=== PATIENT | male | born 1995 | race Caucasian/White ===

== ENCOUNTER 2020-07-30 13:41 | Emergency (ER) | payer OTHER ==
[~2020-07-30 13:41] MED LIST: IBUPROFEN800 MG PO; MEDROL 4MG DOSEP4 MG PO; PROTONIX 40MG T40 MG PO; VOLTAREN **OUT75 MG PO
[2020-07-30 14:49] LABS: BASOPHIL 1.3 % (0-2); EOSINOPHIL 3.8 % (0-5); HCT 42.6 % (42.0-52.0); HGB 14.4 g/dl (13.2-18.0); LYMPHOCYTE 31.2 % (15-48); MCH 29.8 pg (25.0-31.0); MCHC 33.8 g/dL (32.0-36.0); MCV 88.2 fL (78.0-100.0); MONOCYTE 9.6 % (0-12); MPV 9.3 fL (6.0-9.5); NEUTROPHIL 53.8 % (41-80); NRBC 0; PLT 302 K/uL (150-400); RBC 4.83 M/uL (4.70-6.00); RDW 13.6 % (11.5-14.0); WBC 7.7 K/uL (4.0-10.5)
[2020-07-30 15:00] LABS: BILIRUBIN - TOTAL 0.4 mg/dL (0.2-1.0); BUN/CREAT RATIO (CALC) 15.2 RATIO; CREATININE 0.92 mg/dL (0.67-1.17); GLOBULIN (CALCULATION) 3.1 g/dL; POTASSIUM 3.8 mmol/L (3.5-5.1); TOTAL PROTEIN 7.1 g/dL (6.4-8.2)
[2020-07-30] MEDS ORDERED: NAPROXEN500 MG PO (15:22)
== END 2020-07-30 15:45 | disposition home or self-care (01) ==
LOC: FER 13:41
PROVIDERS: Emergency Medicine
DX: M94.0 Chondrocostal junction syndrome [Tietze] (principal); J45.909 Unspecified asthma, uncomplicated; F17.200 Nicotine dependence, unspecified, uncomplicated
CPT/HCPCS: 36415; 71045; 80053; 84484; 85025; 93005

== ENCOUNTER 2020-09-03 15:59 | Emergency (ER) | payer OTHER ==
[~2020-09-03 15:59] MED LIST changes: +NAPROXEN500 MG PO
== END 2020-09-03 17:03 | disposition home or self-care (01) ==
LOC: FER 15:59
DX: R07.9 Chest pain, unspecified (principal)
CPT/HCPCS: 36415; 71045; 84484; 93005

== ENCOUNTER 2021-02-06 21:57 | Emergency (ER) | payer OTHER ==
[2021-02-06 22:27] LABS: BASOPHIL 0.8 % (0-2); EOSINOPHIL 0.5 % (0-5); HCT 40.1 % (42.0-52.0); LYMPHOCYTE 22.7 % (15-48); MCH 29.9 pg (25.0-31.0); MCHC 34.9 g/dL (32.0-36.0); MCV 85.5 fL (78.0-100.0); MONOCYTE 7.3 % (0-12); MPV 8.8 fL (6.0-9.5); NEUTROPHIL 68.5 % (41-80); NRBC 0; PLT 278 K/uL (150-400); RBC 4.69 M/uL (4.70-6.00); RDW 13.5 % (11.5-14.0); WBC 9.2 K/uL (4.0-10.5)
[2021-02-06 22:52] LABS: ALBUMIN 4.4 g/dL (3.4-5.0); BILIRUBIN - TOTAL 0.6 mg/dL (0.2-1.0); BUN/CREAT RATIO (CALC) 13.3 RATIO; CREATININE 1.05 mg/dL (0.67-1.17); GLOBULIN (CALCULATION) 2.9 g/dL; POTASSIUM 3.5 mmol/L (3.5-5.1); TOTAL PROTEIN 7.3 g/dL (6.4-8.2)
== END 2021-02-06 23:25 | disposition home or self-care (01) ==
LOC: FER 21:57
PROVIDERS: Emergency Medicine
DX: R07.89 Other chest pain (principal); F17.200 Nicotine dependence, unspecified, uncomplicated
CPT/HCPCS: 36415; 71045; 80053; 84484; 85025; 93005; J1885

== ENCOUNTER 2021-03-06 00:07 | Emergency (ER) | payer OTHER ==
[2021-03-06 00:50] LABS: BASOPHIL 0.6 % (0-2); EOSINOPHIL 0.6 % (0-5); HCT 41.6 % (42.0-52.0); HGB 14.5 g/dl (13.2-18.0); LYMPHOCYTE 16.1 % (15-48); MCH 30.8 pg (25.0-31.0); MCHC 34.9 g/dL (32.0-36.0); MCV 88.3 fL (78.0-100.0); MONOCYTE 6.3 % (0-12); MPV 9.8 fL (6.0-9.5); NEUTROPHIL 76.1 % (41-80); NRBC 0; PLT 334 K/uL (150-400); RBC 4.71 M/uL (4.70-6.00); RDW 13.5 % (11.5-14.0); WBC 14.5 K/uL (4.0-10.5)
[2021-03-06 01:29] LABS: ALBUMIN 4.2 g/dL (3.4-5.0); ALKALINE PHOSHATASE 52 U/L (46-116); ALT 23 U/L (16-63); AST 20 U/L (15-37); BILIRUBIN - TOTAL 0.3 mg/dL (0.2-1.0); BUN 8 mg/dL (7-18); BUN/CREAT RATIO (CALC) 8.5 RATIO; C-REACTIVE PROTEIN < 0.20 mg/dL (<=0.90); CHLORIDE 105 mmol/L (98-107); CO2 (BICARBONATE) 24 mmol/L (21-32); CREATININE 0.94 mg/dL (0.67-1.17); GLOBULIN (CALCULATION) 3.4 g/dL; GLUCOSE 105 mg/dL (74-106); LIPASE 143 U/L (73-393); POTASSIUM 3.4 mmol/L (3.5-5.1); TOTAL PROTEIN 7.6 g/dL (6.4-8.2)
[2021-03-06] MEDS ORDERED: PHENERGAN12.5 M1 PO (01:46)
[2021-03-06] MEDS ORDERED: ETODOLAC300 MG PO (01:46)
== END 2021-03-06 02:22 | disposition home or self-care (01) ==
LOC: FER 00:07
PROVIDERS: Emergency Medicine Emergency Medical Services
DX: R07.89 Other chest pain (principal); R11.0 Nausea; J45.909 Unspecified asthma, uncomplicated; F17.200 Nicotine dependence, unspecified, uncomplicated; Z20.822 Contact with and (suspected) exposure to COVID-19
CPT/HCPCS: 36415; 71045; 80053; 83690; 84484; 85025; 85379; 86140; 93005; J1885; J2405; J2930; J7030; Q0169; U0002